=== PATIENT | male | born 1975 | race African-American/Black ===

== ENCOUNTER 2019-10-02 14:16 | Emergency (ER) | payer MEDICAID ==
[~2019-10-02] VITALS: Ht 190.5 cm; Wt 129.3 kg
[2019-10-02 14:29] VITALS: BP 137/92
[2019-10-02] MEDS ORDERED: KETOROLAC TROMETH 60MG/2ML VIAL IM ONE (15:15)
== END 2019-10-02 15:40 | disposition home or self-care (01) ==
LOC: ER 14:16
DX: K04.7 Periapical abscess without sinus (principal); I10 Essential (primary) hypertension; F17.210 Nicotine dependence, cigarettes, uncomplicated
CPT/HCPCS: 96372; 99283; J1885

== ENCOUNTER 2019-10-04 12:47 | Emergency (ER) | payer MEDICAID ==
[~2019-10-04] VITALS: Ht 190.5 cm; Wt 129.3 kg
[2019-10-04 14:03] VITALS: BP 159/100
[2019-10-04] MEDS ORDERED: KETOROLAC TROMETH 60MG/2ML VIAL IM ONE (15:00)
[2019-10-04] MEDS ORDERED: cefTRIAXone SOD 1,000 MG VL IM ONE (15:00)
== END 2019-10-04 15:26 | disposition home or self-care (01) ==
LOC: ER 12:47
DX: K04.7 Periapical abscess without sinus (principal); K02.9 Dental caries, unspecified
CPT/HCPCS: 96372; 99284; J0696; J1885